=== PATIENT | male | born 2000 | race Caucasian/White ===

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

== ENCOUNTER → 2022-11-05 | Day surgery (SDC) | payer BC, OTHER ==
[~2022-11-05] VITALS: Ht 182.9 cm; Wt 97.5 kg
[~2022-11-05] MED LIST: AMOX875T2 PO; AMPICILLIN SOD/SULBACTAM SOD 3 GM in D5W MINI-BAG PLUS 100 ML IV ONE; HOME MED LIST COMPLETE! XX SCH; ISOVUE-370 76% 100ML VIAL As Ordered ONE; KETOROLAC 60MG 2ML VIAL As Ordered ONE; LIDOCAINE 2% 100MG/5ML SDV (FOR ANES.) As Ordered ONE; LIDOCAINE W/EPINEPHRINE 1% 20ML VIAL As Ordered ONE; LR 1,000 ML IV SCH; METOCLOPRAMIDE INJ 10MG/2ML VIAL As Ordered ONE; MIDAZOLAM INJ 2MG/2ML VIAL As Ordered ONE; ONDANSETRON 4MG 2ML VIAL As Ordered ONE; ONDANSETRON 4MG 2ML VIAL IV PRN; ROCURONIUM BROMIDE 50MG/5ML VIAL As Ordered ONE; SUCCINYLCHOLINE 100MG/5ML SYRINGE As Ordered ONE; SUGAMMADEX SODIUM 500 MG/5 ML VIAL (BRIDION) As Ordered ONE; dexAMETHasone 20MG/5ML VIAL IV ONE; fentaNYL 100 MCG/2 ML INJECTION As Ordered ONE; fentaNYL 100 MCG/2 ML INJECTION IV PRN; oxyCODONE 5MG TAB PO PRN; propofoL 200 MG/20 ML VIAL As Ordered ONE
[2022-11-05 13:28] LABS: BASO # 0.1 10^3/uL (0.0-0.2); BASO % 0.4 % (0.0-1.0); EOS # 0.1 10^3/uL (0.0-0.5); EOS % 0.5 % (0.0-3.0); HEMOGLOBIN 15.4 g/dl (13.5-17.5); LYMPH # 2.3 10^3/uL (1.5-5.0); LYMPH % 12.4 % (24.0-44.0); MEAN CORPUSCULAR HEMOGLOBIN 28.3 pg (27.0-33.0); MEAN CORPUSCULAR HGB CONC 33.5 g/dl (32.0-36.5); MEAN CORPUSCULAR VOLUME 84.4 fl (80.0-96.0); MONO # 1.4 10^3/uL (0.0-0.8); MONO % 7.2 % (2.0-8.0); NEUTROPHILS # 14.7 10^3/uL (1.5-8.5); NEUTROPHILS % 79.1 % (36.0-66.0); PLATELET COUNT, AUTOMATED 341 10^3/uL (150-450); RED BLOOD COUNT 5.45 10^6/uL (4.30-6.10); WHITE BLOOD COUNT 18.6 10^3/uL (4.0-10.0)
[2022-11-05 13:35] LABS: ERYTHROCYTE SEDIMENTATION RATE 41 mm/hr (0-15)
[2022-11-05 13:39] LABS: INR 1.12; PROTHROMBIN TIME 14.1 SECONDS (12.5-14.5)
[2022-11-05 13:40] LABS: PARTIAL THROMBOPLASTIN TIME 30.8 SECONDS (24.8-34.2)
[2022-11-05 13:55] LABS: ALBUMIN 3.3 G/DL (3.2-5.2); ALKALINE PHOSPHATASE 78 U/L (46-116); ALT/SGPT 14 U/L (7.0-40); AST/SGOT 17 U/L (<34); BILIRUBIN,DIRECT 0.1 MG/DL (<0.4); BILIRUBIN,TOTAL 0.4 MG/DL (0.3-1.2); BLOOD UREA NITROGEN 7 MG/DL (9-23); CALCIUM LEVEL 8.3 MG/DL (8.5-10.1); CARBON DIOXIDE LEVEL 26 MMOL/L (20-31); CHLORIDE LEVEL 103 MMOL/L (98-107); CREATININE FOR GFR 0.66 MG/DL (0.70-1.30); GLOMERULAR FILTRATION RATE > 60.0 (>60); GLUCOSE, FASTING 85 MG/DL (60-100); POTASSIUM SERUM 4.6 MMOL/L (3.5-5.1); SODIUM LEVEL 137 MMOL/L (136-145); TOTAL PROTEIN 6.4 G/DL (5.7-8.2)
[2022-11-05 14:00] LABS: MONO SCRN NEGATIVE (NEGATIVE)
[2022-11-05 14:04] LABS: RSV AMPLIFICATION NEGATIVE (NEGATIVE)
[2022-11-05 17:30] VITALS: TEMP 97.5
[2022-11-05 17:45] VITALS: BP 129/75; O2SAT 98
== END | disposition home or self-care (01) ==
LOC: M ED 12:40 → M OROP 16:07
PROVIDERS: ATTEND Otolaryngology
DX: J36 Peritonsillar abscess (principal); B95.5 Unspecified streptococcus as the cause of diseases classified elsewhere; F17.200 Nicotine dependence, unspecified, uncomplicated
CPT/HCPCS: 42700; 70491; 80047; 80048; 80076; 85025; 85610; 85652; 85730; 86140; 86308; 87070; 87075; 87077; 87186; 87205; 87486; 87581; 87631; 87633; 87798; 94760; 96365; 99284; J0295; J0330; J1100; J1885; J2250; J2405; J2765; J3010; Q9967